=== PATIENT | male | born 1975 | race Caucasian/White ===

== ENCOUNTER → 2020-02-22 06:37 | Outpatient (CLI) | payer BC, SELFPAY ==
--- NOTE | 2020-02-22 | CA_ITS ---
APPROVED REPORT Exam: Exercise Treadmill Technologist: Lenora Poe, Ht: 5 ft 10 in Wt: 220 lbs BSA: 2.17 m2 HR: 91 bpm BP: 142/62 mmHg Medical History Medications: Fluoxetine,,,,, CiALIS,,,,, ADderALL,,,,, Cardiac Risk Factors: FHX of CAD Stress Test Details Test: Gilberto HR Resting HR: 64 bpm Max Heart Rate (APMHR): 177 bpm Max HR Achieved: 159 bpm Target HR (85% APMHR): 150 bpm % of APMHR: 89 BP Resting BP: 129/81 mmHg Max BP: 177/117 mmHg ECG Clinical Reason for Termination: Fatigue Exercise duration: 11:30 min Highest Stage Achieved: Exercise capacity: 12.8 METs Stress ECG Conclusion EXERCISED 11:30 ON GILBERTO PROTOCOL WITH MAX HEART RATE 159 BPM WHICH IS 103% OF PM FOR AGE. METS = 12.8. TEST STOPPED DUE TO BACK PAIN. NO CP. RARE PVC. <1.5MM ST SEGMENT CHANGES. NEGATIVE TEST Test Summary Stage 3 01:00 14.0 3.4 123 . . . . REST . . . . . . . Sitting REST . . . . . . . Sitting REST . . . . . . . Sitting REST 06:09 0.0 0.0 64 . 129/ 81 . . Stage 1 01:00 10.0 1.7 94 . . . . Stage 1 02:00 10.0 1.7 93 . . . . Stage 1 03:00 10.0 1.7 92 . 142/ 62 . . Stage 2 01:00 12.0 2.5 100 . . . . Stage 2 02:00 12.0 2.5 108 . . . . Stage 2 03:00 12.0 2.5 107 . 150/ 60 . . Stage 3 01:00 14.0 3.4 123 . . . . Stage 3 02:00 14.0 3.4 129 . . . . Stage 3 03:00 14.0 3.4 124 . 145/ 55 . . Stage 4 01:00 16.0 4.2 141 . . . . Stage 4 . . . . . . . Cardiolite injected Stage 4 02:00 16.0 4.2 153 . . . . Stage 4 02:30 16.0 4.2 158 . . . Stop exercise at 11:30 RECOVERY 01:00 0.0 0.0 136 . . . . RECOVERY 02:00 0.0 0.0 124 . 145/ 58 . . RECOVERY 03:00 0.0 0.0 113 . 145/ 58 . . RECOVERY 04:00 0.0 0.0 105 . 145/ 58 . . RECOVERY 05:00 0.0 0.0 100 . 157/102 . . RECOVERY 06:00 0.0 0.0 105 . 177/117 . . RECOVERY 07:00 0.0 0.0 105 . 163/109 . . RECOVERY 08:00 0.0 0.0 105 . 163/109 . . RECOVERY 09:00 0.0 0.0 100 . 163/109 . . RECOVERY 09:34 0.0 0.0 101 . 159/113 . . Electronically signed by : Hugo Grimes, 02/26/2020 09:01:09
--- NOTE | 2020-02-22 06:45 | NM_ITS ---
APPROVED REPORT Exam: Nuclear Stress Test Indication: C.P.,SOB, FATIGUE Patient Location: Outpatient Stress Tech: Nidia Poe [place] Tech:Brisa CabreraMAHIN RT(R)(N) Ht: 5 ft 10 in Wt: 220 lbs HR: 91 bpm BP: 142/62 mmHg BSA: 2.17 m2 BMI: 31.5 History: C.P.,SOB, FATIGUE Procedure: Patient exercised on Gilberto protocol 11:30 minutes and sec, resting heart rate 91 bpm, resting blood pressure 142/62 mmHg, with exercise maximum heart rate achived was 169 bpm which is 103 % of the maximum predicted heart rate and blood pressure was 177/117 mmHg. Patient denied any complaint of chest pain. Patient has exercise capacity, achieved 12.8 METs of workload on treadmill, the blood pressure response to exercise was . Cardiac Stress and Resting SPECT Images: Cardiac Stress and Resting SPECT images were obtained using technetium 99m Myoview 31.6 mCi stress and 10.04 mCi at rest. Ejection fraction is normal at 57% No fixed or reversible defects are evident No evidence of ischemia or infarction Unremarkable exam Conclusion: Ejection fraction is normal at 57% No fixed or reversible defects are evident No evidence of ischemia or infarction Unremarkable exam Electronically signed by : Sergio Carrion MD 02/27/2020 17:17:06
[2020-02-22 10:16] LABS: Basophils % 0.4 % (0.1-2.0); Eosinophils # 0.2 K/mm3 (0.0-0.4); Hematocrit 47.8 % (42.0-52.0); Hemoglobin 16.1 g/dL (14.1-18.0); Lymphocytes # 1.9 K/mm3 (0.7-4.5); Lymphocytes % 33.9 % (10-50); Mean Corpuscular HGB Conc 33.7 g/dL (31.8-35.4); Mean Corpuscular Hemoglobin 31.7 pg (27.0-31.2); Mean Corpuscular Volume 94.1 fl (80-94); Mean Platelet Volume 7.2 fl (7.4-10.4); Monocytes # 0.4 K/mm3 (0.1-1.0); Monocytes % 7.9 % (1.7-9.3); Neutrophils % 54.8 % (37.0-80.0); Platelet Count 229 K/mm3 (142-424); Red Blood Count 5.08 M/mm3 (4.60-6.20); Red Cell Distribution Width 13.6 % (11.5-17.5); White Blood Count 5.5 K/mm3 (4.8-10.8)
[2020-02-22 11:15] LABS: Alanine Aminotransferase 25 U/L (12-78); Albumin Level 4.2 g/dl (3.5-5.0); Albumin/Globulin Ratio 1.5 (1.1-1.8); Alkaline Phosphatase 106 U/L (38-126); Aspartate Amino Transferase 31 U/L (17-59); Bilirubin,Total 0.8 mg/dl (0.2-1.3); Calcium 9.6 mg/dl (8.4-10.2); Carbon Dioxide 29 mmol/L (22.0-30.0); Chloride 102 mmol/L (98-107); Chol/HDL Ratio 2.7 (1-3.5); Cholesterol 186 mg/dl (140-200); Globulin 2.8 g/dL (1.3-3.2); Glucose 103 mg/dl (74-100); HDL Cholesterol 69 mg/dl (40-60); Sodium 136 mmol/L (136-145); Triglycerides 65 mg/dl (30-150); VLDL Cholesterol 13 mg/dL (0-40)
[2020-02-22 11:26] LABS: C-Reactive Protein 6.2 mg/L (0-4); Direct LDL Cholesterol 94.19 mg/dL (100-129)
[2020-02-22 11:30] LABS: Blood Urea Nitrogen 13 mg/dl (9-20); Estimated Glomerular Filt Rate 82 ml/min (>60); GFR (African American) 99 ML/MIN (>60)
[2020-02-22 11:47] LABS: Thyroid Stimulating Hormone 3.08 uIU/mL (0.465-4.68)
[2020-02-22 12:04] LABS: Vitamin B12 258 pg/mL (239-931)
== END ==
PROVIDERS: PCP Internal Medicine Adolescent Medicine; Visit Provider Nurse Practitioner Family
DX: I45.10 Unspecified right bundle-branch block (principal); R06.02 Shortness of breath; R03.0 Elevated blood-pressure reading, without diagnosis of hypertension; Z86.39 Personal history of other endocrine, nutritional and metabolic disease; Z87.19 Personal history of other diseases of the digestive system
CPT/HCPCS: 36415; 78452; 80053; 80061; 82607; 84443; 85025; 86140; 93017; A9502

== ENCOUNTER → 2020-04-10 08:23 | Outpatient (CLI) | payer OTHER, SELFPAY ==
[2020-04-10 10:40] LABS: Coronavirus 19 IgG Antibody Negative (Negative); Coronavirus 19 IgM Antibody Negative (Negative)
== END ==
PROVIDERS: Visit Provider Internal Medicine Gastroenterology
DX: Z01.818 Encounter for other preprocedural examination (principal); Z03.818 Encounter for observation for suspected exposure to other biological agents ruled out; Z13.810 Encounter for screening for upper gastrointestinal disorder; Z12.11 Encounter for screening for malignant neoplasm of colon
CPT/HCPCS: 36415; 86328

== ENCOUNTER 2020-04-11 11:04 | Day surgery (SDC) | payer OTHER, SELFPAY ==
[2020-04-01 14:00] VITALS: BMI 31.5
[2020-04-11 11:50] VITALS: BP 138/89; PULSE 66; RESP 18; TEMP 36.4; O2SAT 98
[2020-04-11 12:17] VITALS: O2SAT 97
--- NOTE | 2020-04-11 12:20 | HMH.ANESCL ---
[facility] Anesthesia Checklist - Structural Data Admitted From: Home Planned Operative Procedure/s: egd/colonoscopy Consent for Planned Operative Procedure(s) Verified: Yes - Airway Assessment C-Spine Mobility Assessed: Yes TMJ Mobility Assessed: Yes Dentition: Good Dentition - Neurological Assessment Level of Consciousness: Awake, Alert, Appropriate - Anesthesia Plan Anesthesia Risk discussed: Yes Anesthesia Plan: Verified ASA Class: II Anesthesia Type: MAC [facility] History I have reviewed the patient's past medical history: Yes Medical History: Reports:: Seizures Denies:: Cancer, Diabetes Mellitus Type 1, Diabetes Mellitus Type 2, MRSA *Have you ever received a pneumonia vaccine?: No *Have you received a flu vaccine this season?: No Anesthesia experience/problems:: none Laterality Cases: Bilateral: Tonsillectomy Amputation: No Fractures: No - *Social History Last grade of school completed: High school graduate Smoking Status: Never smoker Alcohol Intake: never Substance Use Type: denies use *Occupational Status:: employed *Travel in the last 8 weeks: None Family Hx:: Hyperlipidemia
--- NOTE | 2020-04-11 12:36 | HMH.PROC ---
[facility] Procedure Note Procedure Note:: Upper Endoscopy Procedure Report: Esophagogastroduodenoscopy with cold biopsies and TTS balloon dilation Endoscopost: Javon Doran II, MD Referring Physician: KELSEY Granger Date of Procedure: April 11, 2020 Equipment: Olympus GIF 180 standard upper endoscope Sedation: MAC sedation Indications: Mr. Thorpe is a 45-year-old gentleman who is here for diagnostic panendoscopy. The patient has had increasing heartburn and reflux. He is not on any long-term PPI therapy. 3 months ago he was having some difficulties with dysphagia. He reports some lower abdominal discomfort and bloating. He has some intermittent belching. He reports occasional early satiety. He reports no epigastric abdominal pain or nausea. He does have bowel irregularity with constipation alternating with loose bowel movements. He does have some incomplete defecation. He did have panendoscopy 10 years ago. Procedure: Prior to the procedure, a history and physical exam was performed, and patient's medications and allergies were reviewed. The risks, benefits and alternatives of the sedation and procedure were discussed with the patient. All questions were answered and informed consent was obtained. The patient was brought to the procedure room. Patient identification and proposed procedure were verified by the physician and the nurse. The patient was placed in a left lateral decubitus position and the scope was passed under direct vision. Throughout the procedure, the patient's blood pressure, pulse, and oxygen saturations were monitored continuously. The upper GI endoscopy was accomplished without difficulty. The patient tolerated the procedure well. Findings: The scope was passed directly into the upper esophagus and advanced to the third portion of the duodenum. The post bulbar duodenum and duodenal bulb were normal with normal mucosa and conniventes. The scope was withdrawn through a normal duodenal bulb and pylorus into the stomach. There was bile reflux with moderate linear reactive gastropathy of the antrum and body. Cold biopsies were obtained. The remainder of the antrum, body and fundus of the stomach were grossly normal. Upon retroflexion there was no hiatal hernia. 2 biopsies were taken in the antrum and along the lesser curvature for histology to rule out gastritis and/or H pylori. The scope was then withdrawn into the esophagus. There was grade A?B reflux esophagitis and a biopsy was taken at the GE junction to rule out short segment Baldwin's esophagus. There was no Schatzki's ring or peptic stricture. There were tertiary contractions and mild esophageal dysmotility. The entire esophagus was dilated to 60 Pashto/20 mm with a TTS hydrostatic balloon. The remainder of the esophageal mucosa was normal. Impression: 1. Grade A?B (LA classification) reflux esophagitis with mild esophageal dysmotility 2. Bile reflux with moderate linear reactive gastropathy Plan: I will follow-up the biopsies. I will place the patient on omeprazole 40 mg p.o. daily for complicated GERD (erosive esophagitis). I will proceed with diagnostic colonoscopy.
[2020-04-11 12:55] VITALS: BP 111/64; PULSE 75; RESP 18; O2SAT 92
--- NOTE | 2020-04-11 12:55 | P.PCN_ITS ---
[facility] Procedure Note Procedure Note:: Colonoscopy Procedure Report: Colonoscopy with cold snare polypectomy Endoscopist: Javon Doran II, MD Referring physician: KELSEY Granger Date of Procedure: April 11, 2020 Equipment: Olympus 180 variable stiffness pediatric colonoscope Sedation: MAC sedation Indication: Mr. Thorpe is a 45-year-old gentleman with bowel irregularity and change in bowel habits. He has had constipation that alternates with diarrhea. He reports lower abdominal pain and discomfort with bloating. He has some in complete defecation. He rarely notes some blood on the toilet tissue. He reports no weight loss or family history of colon cancer. His last colonoscopy was 10 years ago. Procedure: Prior to the procedure, a history and physical exam was performed, and patient's medications and allergies were reviewed. The risks, benefits and alternatives of the sedation and procedure were discussed with the patient. All questions were answered and informed consent was obtained. The patient was brought to the procedure room. Patient identification and proposed procedure were verified by the physician and the nurse. The patient was placed in a left lateral decubitus position and the scope was passed under direct vision. Throughout the procedure, the patient's blood pressure, pulse, and oxygen saturations were monitored continuously. The colonoscopy was accomplished without difficulty. The patient tolerated the procedure well. Findings: On digital rectal examination there was normal rectal tone. There were no external hemorrhoids. The prostate was 2+, smooth, soft, symmetric without nodules. The colonoscope was introduced through the anal canal to the rectum and advanced to the cecum. The ileocecal valve and appendiceal orifice were identified. The scope was advanced a short distance into the ileum which appeared grossly normal. The scope was then withdrawn into the colon. There w ere 2 polyps (ascending x1 (2 to 3 mm) and descending x1 (5 mm)) that were both removed via cold snare polypectomy. The remainder of the colonoscopy was normal and there were no other mucosal abnormalities identified. Upon retroflexion within the rectum there were grade 1-2 internal hemorrhoids.The preparation was excellent throughout with Kennett Preparation Score of 9. The cecal time was 12 minutes. Impression: 1. Diminutive colonic polyps x2 2. Grade 1-2 internal hemorrhoids Plan: We will discuss dietary measures and treatment options for his IBS/functional bowel disease. I would consider C 13 sucrose breath testing at a later point.. I will follow up the polyp pathology and recommend repeat colonoscopy again in 7-10 years based upon the polyp histology.
[2020-04-11 13:05] VITALS: BP 115/75; PULSE 53; RESP 18; O2SAT 99
[2020-04-11 13:15] VITALS: BP 110/72; PULSE 51; RESP 18; O2SAT 99
[2020-04-11 13:30] VITALS: BP 109/54; PULSE 53; RESP 18; O2SAT 98
== END 2020-04-11 13:36 | disposition home or self-care (01) ==
LOC: OUTP 11:08
PROVIDERS: PCP Internal Medicine Adolescent Medicine; Visit Provider Internal Medicine Gastroenterology
PROC: 0DJ08ZZ Inspection of Upper Intestinal Tract, Via Natural or Artificial Opening Endoscopic (ICD-10-PCS; CPT 43235; principal; 2020-04-11 12:00)
DX: R15.0 Incomplete defecation (principal); K21.00 Gastro-esophageal reflux disease with esophagitis, without bleeding; K22.4 Dyskinesia of esophagus; K31.9 Disease of stomach and duodenum, unspecified; K63.5 Polyp of colon; K58.2 Mixed irritable bowel syndrome; K64.0 First degree hemorrhoids; Z88.8 Allergy status to other drugs, medicaments and biological substances; F41.9 Anxiety disorder, unspecified; Z79.899 Other long term (current) drug therapy
CPT/HCPCS: 43239; 43249; 45385; C1726

== ENCOUNTER → 2020-07-14 10:05 | Outpatient (POV) | payer OTHER, SELFPAY | PROVIDERS: Visit Provider Nurse Practitioner Family | DX: Z00.00 Encounter for general adult medical examination without abnormal findings (principal) ==

== ENCOUNTER → 2020-10-27 10:24 | Outpatient (POV) | payer OTHER, SELFPAY | PROVIDERS: Visit Provider Nurse Practitioner Family | DX: Z00.00 Encounter for general adult medical examination without abnormal findings (principal) ==

== ENCOUNTER → 2020-10-30 08:39 | Outpatient (CLI) | payer OTHER, SELFPAY ==
[2020-10-31 18:03] LABS: Fats, Neutral Normal (.); Fats, Total Increased (.)
[2020-11-06 00:42] LABS: Pancreatic Elastase, Fecal 319 (>200)
== END ==
PROVIDERS: Visit Provider Nurse Practitioner Family
DX: R79.89 Other specified abnormal findings of blood chemistry (principal)
CPT/HCPCS: 82656; 82705

== ENCOUNTER 2021-04-17 18:15 | Emergency (ER) | payer OTHER, SELFPAY ==
[2021-04-17 18:17] VITALS: BP 167/100; PULSE 115; RESP 16; TEMP 37.2; O2SAT 100; BMI 33.0
--- NOTE | 2021-04-17 18:35 | CT_ITS ---
PROCEDURE INFORMATION: Exam: CT Abdomen And Pelvis With Contrast Exam date and time: 04/17/2021 6:35 PM Age: 46 years old Clinical indication: Abdominal pain; Localized; Left lower quadrant (llq); Prior surgery; Surgery type: Appendectomy; Additional info: Llq pain TECHNIQUE: Imaging protocol: Computed tomography of the abdomen and pelvis with contrast. Total images: 332 Radiation optimization: All CT scans at this facility use at least one of these dose optimization techniques: automated exposure control; mA and/or kV adjustment per patient size (includes targeted exams where dose is matched to clinical indication); or iterative reconstruction. Contrast material: ISOVUE; Contrast volume: 75 ml; Contrast route: IV; COMPARISON: No relevant prior studies available. FINDINGS: Lungs: Moderate atelectasis in the lung bases. Granulomatous calcification in the posterior left lung base. Heart: Heart size normal. Mediastinal space: The visualized distal esophagus is largely contracted without gross abnormality. Liver: Normal contour. Well-circumscribed low-density hepatic lesions demonstrating benign CT features consistent with hepatic cysts. No further imaging evaluation is required based on current consensus criteria. No intrahepatic biliary ductal dilatation. Gallbladder and bile ducts: Gallstones layering dependently in the gallbladder lumen near the neck measuring up to 17 mm in size with no gallbladder wall thickening or adjacent stranding to suggest cholecystitis. Nondilated bile ducts. Pancreas: Normal. No inflammatory changes or ductal dilation. Spleen: Granulomatous calcifications in the spleen without acute splenic abnormality. Adrenal glands: Normal. No adrenal mass. Kidneys and ureters: No acute abnormalities. No hydronephrosis or hydroureter. No urinary tract stones are identified. Stomach and bowel: The stomach is largely contracted without gross abnormality. Question mildly excessive fluid content in the mid and distal small bowel segments and proximal colon. This is suspicious for mild gastroenteritis and diarrheal state. No juan bowel dilatation or transition point. No evidence of bowel obstruction, perforation, or abscess. Moderate colonic stool in the mid and proximal segments. Appendix: Prior appendectomy. Intraperitoneal space: No free fluid or air. Vasculature: No acute process. No abdominal aortic aneurysm. Lymph nodes: No adenopathy. Urinary bladder: Unremarkable as visualized. Reproductive: Unremarkable as visualized. Bones/joints: No acute osseous abnormalities. 8 mm bone island in the left subcapital femoral neck incidentally noted. Moderate disc space narrowing L5-S1. Mild disc space narrowing and slight degenerative retrolisthesis L4-L5. Soft tissues: Small fatty right inguinal hernia with no associated bowel herniation or evidence of strangulation. IMPRESSION: 1. Questionable changes of mild gastroenteritis and diarrheal state. 2. Moderate colonic stool. No evidence of diverticulosis or diverticulitis. 3. Gallstones without CT evidence of cholecystitis or biliary obstruction. 4. Additional nonemergent findings detailed above.
--- NOTE | 2021-04-17 18:45 | PC.NURSE ---
Triage and documentation completed by GopalRN under Benjamin due to issues with [facility]
--- NOTE | 2021-04-17 18:46 | HMH.EDGENADL ---
ED Disposition Clinical Impression: Abdominal pain Qualifiers: Abdominal location: epigastric Qualified Code(s): R10.13 - Epigastric pain Leukocytosis Qualifiers: Leukocytosis type: bandemia Qualified Code(s): D72.825 - Bandemia Disposition: Home, Self-Care Condition on Discharge: Fair Instructions: DI for Acute Abdominal Pain Additional Instructions: Tylenol or ibuprofen for pain. Phenergan as needed for nausea and vomiting. Dr. Rodriguez will contact you this weekend to check on your condition. Return to the emergency department if you are having worsening pain, fever greater than 100.5 degrees, repetitive vomiting. Dr. Rodriguez's office will contact you on Tuesday to set up a follow-up appointment. Referrals: Arlin Chaidez APRN [Primary Care Provider] - - Critical Care Critical Care Time: No Attestation: On 04/17/21, the high probability of a clinically significant, sudden or life threatening deterioration of the following system(s) required my full and direct attention, intervention and personal management. The time I documented below is in addition to time spent performing reported procedures but includes the following listed in this critical care notation. Medical Decision Making - Medical Records Medical records reviewed: Yes: I reviewed the patient's medical records. MR Comment: Reviewed reports from colonoscopy and EGD 04/11/2020. - Pedro Inquiry Pt receiving controlled substance: No Vital Signs: 04/17/21 18:17 Temperature 99.0 F Temperature Source Oral Pulse Rate [Right] 115 H Respiratory Rate 16 Blood Pressure [Right Arm] 167/100 H Blood Pressure Mean [Right Arm] 122 Blood Pressure Source [Right Arm] Automatic Cuff Blood Pressure Position [Right Arm] Sitting 02 Sat by Pulse Oximetry 100 Oxygen Delivery Method Room Air - Lab Data Lab Results 04/17/21 18:29: WBC 13.0 H, RBC 5.34, Hgb 17.0, Hct 51.6, MCV 96.6 H, MCH 31.8 H, MCHC 32.9, RDW 14.2, Plt Count 278, MPV 7.3 L, Neut % (Auto) 90.0 H, Lymph % (Auto) 5.2 L, Sac % (Auto) 3.7, Eos % (Auto) 0.7, Baso % (Auto) 0.4, Neut # (Auto) 11.7 H, Lymph # (Auto) 0.7, Sac # (Auto) 0.5, Eos # (Auto) 0.1, Baso # (Auto) 0.1, Total Counted 100, Neutrophils % (Manual) 80 H, Band Neutrophils % 11.0 H, Lymphocytes % (Manual) 8 L, Monocytes % (Manual) 1 L, Platelet Estimate Normal, RBC Morphology Normal 04/17/21 18:29: Sodium 136, Potassium 4.0, Chloride 99, Carbon Dioxide 32 H, Anion Gap 9.0, BUN 15, Creatinine 0.90, Estimated Creat Clear 155, Estimated GFR 92, Est GFR ( Amer) 111, Glucose 103 H, Calcium 9.6, Total Bilirubin 0.9, AST 46, ALT 54, Alkaline Phosphatase 96, Total Protein 7.9, Albumin 4.8, Globulin 3.1, Albumin/Globulin Ratio 1.5, Amylase 62, Lipase 49 04/17/21 18:37: Troponin I < 0.01 04/17/21 19:57: Urine Color Yellow, Urine Appearance Clear, Urine pH 7.0, Ur Specific [place] 1.010, Urine Protein Negative, Urine Glucose (UA) Negative, Urine Ketones Negative, Urine Blood Trace-i, Urine Nitrate Negative, Urine Bilirubin Negative, Urine Urobilinogen 0.2, Ur Leukocyte Esterase Negative, Urine RBC Occasional, Urine WBC Occasional Result diagrams: 04/17/21 18:29 04/17/21 18:29 Orders (Tests/Meds): ED MEDICATIONS Generic Name Dose Route Start Last Admin Trade Name Freq PRN Reason Stop Dose Admin Promethazine HCl 1 tato 04/17/21 20:44 Promethazine 25mg Tablet Take Home Pack (10) PO 05/17/21 20:43 Q6HP PRN Nausea And Vomiting Discontinued Medications Generic Name Dose Route Start Last Admin Trade Name Freq PRN Reason Stop Dose Admin Sodium Chloride 1,000 mls @ 999 mls/hr 04/17/21 19:00 Sod Chlor 0.9% 1000ml Bag IV 04/17/21 20:00 .Q1H1M JEFFREY Ertapenem 1 gm/ Sodium 50 mls @ 100 mls/hr 04/17/21 20:15 04/17/21 20:14 Chloride IV 05/01/21 20:14 100 mls/hr Q24H JEFFREY Administration Iopamidol 75 ml 04/17/21 19:39 04/17/21 19:40 Iopamidol-370 (76%);100ml Bottle IV 04/17/21 19:40 75 ml ONCE ONE
[2021-04-17 18:47] LABS: Basophils # 0.1 K/mm3 (0-0.2); Basophils % 0.4 % (0.1-2.0); Eosinophils # 0.1 K/mm3 (0.0-0.4); Eosinophils % 0.7 % (0.1-12.0); Hematocrit 51.6 % (42.0-52.0); Lymphocytes # 0.7 K/mm3 (0.7-4.5); Lymphocytes % 5.2 % (10-50); Mean Corpuscular HGB Conc 32.9 g/dL (31.8-35.4); Mean Corpuscular Hemoglobin 31.8 pg (27.0-31.2); Mean Corpuscular Volume 96.6 fl (80-94); Mean Platelet Volume 7.3 fl (7.4-10.4); Monocytes # 0.5 K/mm3 (0.1-1.0); Monocytes % 3.7 % (1.7-9.3); Neutrophils # 11.7 K/mm3 (1.8-7.8); Platelet Count 278 K/mm3 (142-424); Red Blood Count 5.34 M/mm3 (4.60-6.20); Red Cell Distribution Width 14.2 % (11.5-17.5)
[2021-04-17 18:51] LABS: Alanine Aminotransferase 54 U/L (12-78); Albumin Level 4.8 g/dl (3.5-5.0); Albumin/Globulin Ratio 1.5 (1.1-1.8); Alkaline Phosphatase 96 U/L (38-126); Amylase 62 U/L (30-110); Aspartate Amino Transferase 46 U/L (17-59); Bilirubin,Total 0.9 mg/dl (0.2-1.3); Blood Urea Nitrogen 15 mg/dl (9-20); Calcium 9.6 mg/dl (8.4-10.2); Carbon Dioxide 32 mmol/L (22.0-30.0); Chloride 99 mmol/L (98-107); Creatinine Clearance Estimated 155 mL/min (50-200); Estimated Glomerular Filt Rate 92 ml/min (>60); GFR (African American) 111 ML/MIN (>60); Globulin 3.1 g/dL (1.3-3.2); Glucose 103 mg/dl (74-100); Lipase 49 U/L (23-300); Sodium 136 mmol/L (136-145); Total Protein,Serum 7.9 g/dl (6.3-8.2)
--- NOTE | 2021-04-17 19:02 | ECG_ITS ---
APPROVED REPORT Exam: Resting ECG HR:100 bpm ECG Measurements Heart Rate 100 AXES CA 146 P 55 QRSd 94 QRS -5 QT 334 T 41 QTc 430 Conclusion Normal sinus rhythm Possible Left atrial enlargement Incomplete right bundle branch block Borderline ECG Electronically signed by : Anderson Soriano MD 04/18/2021 08:17:34
[2021-04-17 19:13] LABS: MANUAL DIFFERENTIAL MANUAL DIFFERENTIAL (MANUAL DIFF)
[2021-04-17 19:36] LABS: Troponin I < 0.01 ng/ml (0.00-0.034)
[2021-04-17 19:39] LABS: Lymphocytes % 8 % (10-50); Monocytes % 1 % (2-9); Neutrophils % 80 % (42-76); Platelet Estimate Normal; RBC Morphology Normal; Total Cells Counted 100
[2021-04-17 20:00] VITALS: BP 148/98; PULSE 95; O2SAT 96
[2021-04-17 20:02] LABS: Microscopic, Urine URINE MICROSCOPIC (MICROSCOPIC)
[2021-04-17 20:04] LABS: Appearance,Urine CLEAR (Clear); Bilirubin,Urine Negative (Negative); Blood, Urine TRACE-I (Negative); Color,Urine YELLOW (Yellow); Glucose,Urine (UA) Negative (Negative); Ketones,Urine Negative (Negative); Leukocyte Esterase,Urine Negative (Negative); Nitrate,Urine Negative (Negative); Protein,Urine Negative (Negative); Urobilinogen,Urine 0.2 EU/dl (0.2)
[2021-04-17 20:09] LABS: RBC,Urine Occasional #/hpf (0-3); WBC,Urine Occasional #/hpf (0-3)
[2021-04-17 20:30] VITALS: BP 161/92; PULSE 91; O2SAT 98
[2021-04-17 21:07] VITALS: BP 153/92; PULSE 82; RESP 16; TEMP 37; O2SAT 97
== END 2021-04-17 21:12 | disposition home or self-care (01) ==
PROVIDERS: Emergency Provider Emergency Medicine; PCP Nurse Practitioner Family
DX: R10.13 Epigastric pain (principal); D72.825 Bandemia; K21.9 Gastro-esophageal reflux disease without esophagitis
CPT/HCPCS: 74177; 80053; 81001; 82150; 83690; 84484; 85007; 85025; 93005; 96365; 96375; 99283; J1335; J2405; Q9967

== ENCOUNTER 2024-07-03 09:14 | Outpatient (CLI) | payer OTHER, SELFPAY ==
[2024-07-05 14:26] LABS: Pancreatic Elastase, Fecal >800 (>200)
== END 2024-07-03 23:59 | disposition home or self-care (01) ==
LOC: LAB 09:15
PROVIDERS: PCP Internal Medicine Adolescent Medicine; Visit Provider Nurse Practitioner Family
DX: K90.9 Intestinal malabsorption, unspecified (principal)
CPT/HCPCS: 82656